=== PATIENT | female | born 1985 | race Caucasian/White ===

== ENCOUNTER 2018-11-05 20:00 | Inpatient (IN) | payer OTHER ==
[2018-11-05] MEDS ORDERED: Promethazine HCl 25 MG/ML VIAL IM PRN (20:20)
[2018-11-05] MEDS ORDERED: Zolpidem Tartrate 5 MG TAB PO PRN (20:20)
[2018-11-05] MEDS ORDERED: Ondansetron PF 4 MG/2 ML Vial IVP PRN (20:20)
[2018-11-05] MEDS ORDERED: Acetaminophen 500 MG TAB PO PRN (20:20)
[2018-11-05] MEDS ORDERED: Ibuprofen 800 MG TAB PO PRN (20:30)
--- NOTE | 2018-11-05 20:36 | HP ---
She is scheduled for admission this evening to Labor and Delivery. HISTORY OF PRESENT ILLNESS: Ms. Muniz is a 33-year-old white female, G2, P1, who is at 16 weeks and 6 days by LMP of 07/10/2018. She had been doing well at this and today she went for gender identification in a local ultrasound site called [facility]. At that time, she was noted to have no heart tones visualized in this and was sent to our office. She had had a most recent visit on 10/10 at 13 weeks with good heart tones documented at 158. First trimester ultrasound at 9 weeks also confirmed viability and that was on her new OB visit on 09/12. Unfortunately, no heart tones were visualized on ultrasound in my office and this was confirmed. The crown to rump length measurements was consistent with 13 to 14-week fetus. There was scalp edema and some generalized soft tissue edema noted with bone ossification. The patient denied any vaginal bleeding, fever, recent illness, or abdominal pain. She had declined genetic testing in her first trimester. PAST MEDICAL HISTORY: Negative. PAST SURGICAL HISTORY: Negative. She had a previous uncomplicated vaginal delivery of 7 pounds 9 ounce male in 02/2015. SOCIAL HISTORY: She is a nonsmoker. No alcohol use. She is a respiratory therapist at [employer]. FAMILY HISTORY: Noncontributory. ALLERGIES: TO CODEINE AND PENICILLIN. LABORATORY DATA: Her labs of significance are her blood type is O positive. Antibody screen was negative. RPR, HIV, and hepatitis B surface antigen were all negative. Chlamydia and GC were negative. Her urine culture was negative. PHYSICAL EXAMINATION: VITAL SIGNS: Her blood pressure is 116/70, weight 150, afebrile, normal respiratory rate of 14. HEENT: Within normal limits. CHEST: Clear to auscultation. HEART: Regular rate and rhythm, S1 and S2 heart sounds. No murmurs, rubs, or gallops. ABDOMEN: Soft, nontender, nondistended. Uterus is approximately 14-week size. Cervix was closed and long. No abnormal vaginal discharge or bleeding was noted. 2 Dilapan cervical dilators were placed easily in preparation for Cytotec vaginal induction. ASSESSMENT: A 33-year-old white female, G2, P1 with 13 to 14 week demise. PLAN: Plan is to admit for Cytotec vaginal induction this evening, status post placement of 2 Dilapan for cervical ripening done in my office. The plan for removal after approximately 10 to 12 hours. Job ID: [id number]
[2018-11-05 22:04] VITALS: BP 114/69; TEMP 98.2
[2018-11-05 22:08] VITALS: BMI 24.1
[2018-11-05 22:29] LABS: Hemoglobin 11.2 g/dL (12.0-16.0); Mean Corpuscular HGB CONC 35.2 g/dL (32.0-36.0); Mean Corpuscular Hemoglobin 32.5 pg (27.0-31.0); Mean Corpuscular Volume 92.5 fL (78.0-98.0); Mean Platelet Volume 6.8 fL (7.4-10.4); Platelet Count 326 thou/uL (130-400); RBC Distribution Width 11.6 % (11.5-14.5); Red Blood Cell (RBC) Count 3.43 mill/uL (4.20-5.40); White Blood Cell (WBC) Count 7.5 thou/uL (4.8-10.8)
[2018-11-05] MEDS: Lactated Ringer's 1,000 ML IV SCH (22:38)
[2018-11-05] MEDS: Misoprostol 200 MCG TAB VAG SCH (22:41)
[2018-11-06] MEDS: Misoprostol 200 MCG TAB VAG SCH ×4 (01:41→08:45)
[2018-11-06] MEDS: Butorphanol Tartrate 1 MG/ML VIAL SLOW IVP PRN ×2 (05:22→07:45)
[2018-11-06] MEDS: Lactated Ringer's 1,000 ML IV SCH (05:44)
--- NOTE | 2018-11-06 09:02 | PDOC.OPDEL ---
OB Operative/Delivery Note Delivery Dr/Surgeon: Lorraine Pre-Delivery Diagnosis: medically indicated induction Procedure/Post Delivery Dx: spontaneous vaginal delivery Weeks gestation: 14 Anesthesia: other (stadol iv) - Findings A Sex: male - 1 min: 0 - 5 min: 0 - Additional Findings/Plan Placenta delivered: manual removal Repaired Obstetrical Laceration: none Estimated blood loss: 800ml Post delivery plan: routine recovery (55 gram male fetus. crl 9.5 cm...edematous. placenta appears intact.)
[2018-11-06] MEDS ORDERED: Misoprostol 200 MCG TAB PO SCH (11:00)
[2018-11-06 12:03] LABS: Mean Corpuscular HGB CONC 35.1 g/dL (32.0-36.0); Mean Corpuscular Hemoglobin 32.7 pg (27.0-31.0); Mean Corpuscular Volume 93.1 fL (78.0-98.0); Mean Platelet Volume 6.7 fL (7.4-10.4); Platelet Count 275 thou/uL (130-400); RBC Distribution Width 11.6 % (11.5-14.5); Red Blood Cell (RBC) Count 3.06 mill/uL (4.20-5.40); White Blood Cell (WBC) Count 12.2 thou/uL (4.8-10.8)
== END 2018-11-06 13:06 | disposition home or self-care (01) | DRG 779 ==
LOC: L&D 20:56
PROVIDERS: ADMIT Obstetrics & Gynecology; ATTEND Obstetrics & Gynecology
PROC: 10D17Z9 Manual Extraction of Products of Conception, Retained, Via Natural or Artificial Opening (ICD-10-PCS; principal; 2018-11-05)
DX: O02.1 Missed abortion (principal); Z88.5 Allergy status to narcotic agent; Z88.0 Allergy status to penicillin
CPT/HCPCS: 36415; 85027; 86850; 86900; 86901; J0595; J2405

== ENCOUNTER 2019-09-13 08:47 | Outpatient (CLI) | payer OTHER ==
--- NOTE | 2019-09-13 10:03 | RAD ---
Hysterosalpingogram HISTORY: Multiple miscarriages. FINDINGS: After explaining the procedure and answering all questions, the uterine cervix was carefull y prepped. HSG catheter placed into the endometrial cavity and balloon inflated. Small amount of iodinated contrast injected, showing normal capacity and contour of the endometrial c avity given prior pregnancies. The catheter balloon settled into the lower uterine segment and was pushed into the upper cervical canal. Small amount of leakage around the balloon. Cervical canal appe ared somewhat short. Immediate contrast opacification of each fallopian tube and spill bilaterally. The right ovary lies s omewhat high, projecting immediately superior to the right sacroiliac joint. The left ovary is within the left lower pelvis, lower than normally seen. Excess contrast was aspirated and catheter removed. Patient tolerated the procedure well and was dism issed in good condition. IMPRESSION: On the exam, the uterus appears somewhat short and patulous, with minor difficulty in dago ping the retention balloon in the lower uterine segment and small amount of spill of contrast around the retention balloon. Patent bilateral fallopian tubes.
[2019-09-13] MEDS ORDERED: Iopamidol 300 61% 30 ML VIAL ONE (15:56)
== END 2019-09-13 08:48 | disposition home or self-care (01) ==
LOC: RAD 08:47
PROVIDERS: ATTEND Obstetrics & Gynecology
DX: Z31.41 Encounter for fertility testing (principal)
CPT/HCPCS: 58340; 74740; Q9967

== ENCOUNTER 2021-03-12 17:42 | Emergency (ER) | payer OTHER ==
[2021-03-12] MEDS ORDERED: Ketorolac Tromethamine 30 MG/ML VIAL ONE (18:35)
[2021-03-12] MEDS ORDERED: CEFAZOLIN 1 GM VIAL ONE (18:35)
[2021-03-12] MEDS ORDERED: Fentanyl 100 MCG/2 ML VIAL ONE (18:35)
[2021-03-12] MEDS ORDERED: Boostrix 0.5 ML (Tdap) VIAL ONE ×2 (18:35→18:36)
[2021-03-12] MEDS ORDERED: Ondansetron PF 4 MG/2 ML Vial ONE (18:35)
[2021-03-12 19:01] LABS: #Basophils 0.1 thou/uL (0.0-0.2); #Eosinphils 0.1 thou/uL (0.0-0.7); #Lymphocytes 1.8 thou/uL (1.20-3.40); #Monocytes 0.5 thou/uL (0.11-0.59); #Neutrophils 8.5 thou/uL (1.40-6.50); %Basophils 0.7 % (0.0-1.0); %Eosinophils 0.5 % (0.0-10.0); %Lymphocytes 16.8 % (21.0-51.0); %Monocytes 4.3 % (0.0-10.0); %Neutrophils 77.7 % (42.0-75.0); Hemoglobin 13.6 g/dL (12.0-16.0); Mean Corpuscular HGB CONC 34.4 g/dL (32.0-36.0); Mean Corpuscular Hemoglobin 34.4 pg (27.0-31.0); Mean Platelet Volume 6.8 fL (7.4-10.4); Platelet Count 278 thou/uL (130-400); RBC Distribution Width 11.3 % (11.5-14.5); Red Blood Cell (RBC) Count 3.96 mill/uL (4.20-5.40); White Blood Cell (WBC) Count 10.9 thou/uL (4.8-10.8)
[2021-03-12 19:10] LABS: BHCG - Serum Negative (NEGATIVE); Pregs Control Background? CLEAR/WHITE (CLR/WHITE); Pregs Control Bar Appear? YES (CONTROL BAR)
[2021-03-12 19:30] LABS: ALT (SGPT) 19 U/L (8-55); AST (SGOT) 32 U/L (5-34); Albumin 4.7 g/dL (3.5-5.0); Alkaline Phosphatase 66 U/L (40-110); Anion Gap 18 mmol/L (10-20); BUN (Urea Nitrogen) 11 mg/dL (7.0-18.7); Bilirubin, Total 1.5 mg/dL (0.2-1.2); Calc. Creatinine Clearance 0 mL/min (70-130); Calcium 9.3 mg/dL (7.8-10.44); Carbon Dioxide 22 mmol/L (22-29); Chloride 101 mmol/L (98-107); Globulin 3.5 g/dL (2.4-3.5); Glucose 112 mg/dL (70-105); Potassium 3.5 mmol/L (3.5-5.1); Protein, Total 8.2 g/dL (6.0-8.3); Sodium 137 mmol/L (136-145)
[2021-03-12 20:07] LABS: SARS-CoV-2 NAA Rapid Test Not Detected (NotDetected)
== END 2021-03-12 20:03 | disposition home or self-care (01) ==
LOC: ERS 17:42
DX: S42.031A Displaced fracture of lateral end of right clavicle, initial encounter for closed fracture (principal); V89.9XXA Person injured in unspecified vehicle accident, initial encounter; Z20.822 Contact with and (suspected) exposure to COVID-19
CPT/HCPCS: 0240U; 36415; 71045; 72040; 80053; 84703; 85025; 90471; 90715; 96365; 96375; J0690; J1885; J2405; J3010

== ENCOUNTER 2021-03-16 10:35 | Day surgery (SDC) | payer OTHER ==
[2021-03-15 10:17] VITALS: BMI 24.9
[2021-03-16] MEDS ORDERED: Fentanyl 100 MCG/2 ML VIAL ONE ×2 (11:35→12:09)
[2021-03-16] MEDS ORDERED: Midazolam HCl 2 mg/2 ml Vial ONE ×3 (11:35→13:32)
[2021-03-16] MEDS ORDERED: Lidocaine 1% PF 5 ML VIAL ONE (13:09)
[2021-03-16] MEDS ORDERED: Dexamethasone 20 MG/5 ML VIAL ONE (13:09)
[2021-03-16] MEDS ORDERED: PHENYLEPHRINE-NS 100 MCG/ML 10 ML SYRINGE ONE (13:09)
[2021-03-16] MEDS ORDERED: Ondansetron PF 4 MG/2 ML Vial ONE (13:09)
[2021-03-16] MEDS ORDERED: Bupivacaine HCl 0.5%/Epinephrine 1:200,000/PF 30 ml Vial ONE (13:09)
[2021-03-16] MEDS ORDERED: PROPOFOL 200 MG/20 ML VIAL ONE (13:09)
[2021-03-16] MEDS ORDERED: ePHEDrine Sulfate 50 MG/10 ML VIAL ONE (13:09)
== END 2021-03-16 16:38 | disposition home or self-care (01) ==
LOC: SDC 10:35
PROVIDERS: ATTEND Orthopaedic Surgery
PROC: 3E0T3BZ Introduction of Anesthetic Agent into Peripheral Nerves and Plexi, Percutaneous Approach (ICD-10-PCS; principal; 2021-03-16)
PROC: 0PS904Z Reposition Right Clavicle with Internal Fixation Device, Open Approach (ICD-10-PCS; principal; 2021-03-16)
DX: S42.031A Displaced fracture of lateral end of right clavicle, initial encounter for closed fracture (principal); S43.491A Other sprain of right shoulder joint, initial encounter; G89.18 Other acute postprocedural pain; Z79.899 Other long term (current) drug therapy; Z88.0 Allergy status to penicillin; Z88.5 Allergy status to narcotic agent; V89.9XXA Person injured in unspecified vehicle accident, initial encounter
CPT/HCPCS: 76000; C1713; J0690; J1100; J2250; J2405; J2704; J3010